=== PATIENT | male | born 1995 | race Caucasian/White ===

== ENCOUNTER 2018-05-09 11:50 | Emergency (ER) | payer SELFPAY ==
--- NOTE | 2018-05-09 14:31 | Emergency Department Report ---
ED General Adult HPI - General Chief complaint: Upper Respiratory Infection Stated complaint: COUGHING Time Seen by Provider: 05/09/18 13:49 Source: patient Mode of arrival: Ambulatory Limitations: No Limitations - History of Present Illness Initial comments: Patient presents to emergency department with a chief complaint of a cough 1 week that is productive in nature. Patient also complains of body aches -: Sudden Radiation: non-radiation Improves with: none Worsens with: none Associated Symptoms: denies other symptoms Treatments Prior to Arrival: none - Related Data Previous Rx's Medication Instructions Recorded Last Taken Type Ondansetron [Zofran Odt] 4 mg PO Q6H #10 tab.rapdis 12/21/13 Unknown Rx Acetaminophen/Codeine [Tylenol #3] 1 tab PO Q6H PRN #20 tab 08/28/15 Unknown Rx Cyclobenzaprine [Flexeril] 10 mg PO TID PRN #30 tablet 08/28/15 Unknown Rx Ibuprofen [Motrin] 600 mg PO Q8H PRN #40 tablet 08/28/15 Unknown Rx Albuterol Sulfate [Albuterol 0.63% 0.63 mg IH Q4HR PRN #30 ml 05/09/18 Unknown Rx NEBS] Azithromycin [Zithromax Z-RENETTA] 250 mg PO DAILY #6 tablet 05/09/18 Unknown Rx Benzonatate [Tessalon Perles] 100 mg PO Q8HR PRN #20 capsule 05/09/18 Unknown Rx Ibuprofen [Motrin] 800 mg PO Q8HR PRN #30 tablet 05/09/18 Unknown Rx Allergies Allergy/AdvReac Type Severity Reaction Status Date / Time No Known Allergies Allergy Verified 12/20/13 21:03 ED Review of Systems ROS: Stated complaint: COUGHING Other details as noted in HPI Comment: All other systems reviewed and negative Constitutional: denies: chills, fever Eyes: denies: eye pain, eye discharge, vision change ENT: denies: ear pain, throat pain Respiratory: cough. denies: shortness of breath, wheezing Cardiovascular: denies: chest pain, palpitations Endocrine: no symptoms reported Gastrointestinal: denies: abdominal pain, nausea, diarrhea Genitourinary: denies: urgency, dysuria Musculoskeletal: denies: back pain, joint swelling, arthralgia Skin: denies: rash, lesions Neurological: denies: headache, weakness, paresthesias Psychiatric: denies: anxiety, depression Hematological/Lymphatic: denies: easy bleeding, easy bruising ED Past Medical Hx - Past Medical History Previous Medical History?: No Hx Hypertension: No Hx CVA: No Hx Heart Attack/AMI: No Hx Congestive Heart Failure: No Hx Diabetes: No Hx Deep Vein Thrombosis: No Hx Pulmonary Embolism: No Hx GERD: No Hx Liver Disease: No Hx Renal Disease: No Hx of Cancer: No Hx Sickle Cell Disease: No Hx Arthritis: No Hx Headaches / Migraines: No Hx Seizures: No Hx Kidney Stones: No Hx Psychiatric Treatment: No Hx Asthma: No Hx COPD: No Hx Tuberculosis: No Hx Dementia: No Hx HIV: No - Surgical History Past Surgical History?: No Hx Coronary Stent: No Hx Open Heart Surgery: No Hx Pacemaker: No Hx Internal Defibrillator: No Hx Cholecystectomy: No Hx Appendectomy: No Hx Breast Surgery: No - Social History Smoking Status: Never Smoker Substance Use Type: None - Medications Home Medications: Home Medications Medication Instructions Recorded Confirmed Last Taken Type Ondansetron [Zofran Odt] 4 mg PO Q6H #10 tab.rapdis 12/21/13 Unknown Rx Acetaminophen/Codeine [Tylenol #3] 1 tab PO Q6H PRN #20 tab 08/28/15 Unknown Rx Cyclobenzaprine [Flexeril] 10 mg PO TID PRN #30 tablet 08/28/15 Unknown Rx Ibuprofen [Motrin] 600 mg PO Q8H PRN #40 tablet 08/28/15 Unknown Rx Albuterol Sulfate [Albuterol 0.63% 0.63 mg IH Q4HR PRN #30 ml 05/09/18 Unknown Rx NEBS] Azithromycin [Zithromax Z-RENETTA] 250 mg PO DAILY #6 tablet 05/09/18 Unknown Rx Benzonatate [Tessalon Perles] 100 mg PO Q8HR PRN #20 capsule 05/09/18 Unknown Rx Ibuprofen [Motrin] 800 mg PO Q8HR PRN #30 tablet 05/09/18 Unknown Rx ED Physical Exam - General Limitations: No Limitations General appearance: alert, in no apparent distress - Head Head exam: Present: atraumatic, normocephalic - Eye Eye exam: Present: normal appearance, PERRL, EOMI - ENT ENT exam: Present: mucous membranes moist - Neck Neck exam: Present: normal inspection - Respiratory Respiratory exam: Present: normal lung sounds bilaterally, wheezes. Absent: respiratory distress - Cardiovascular Cardiovascular Exam: Present: regular rate, normal rhythm. Absent: systolic murmur, diastolic murmur, rubs, gallop - GI/Abdominal GI/Abdominal exam: Present: soft, normal bowel sounds. Absent: distended, tenderness - Rectal Rectal exam: Present: deferred - Extremities Exam Extremities exam: Present: normal inspection - Back Exam Back exam: Present: normal inspection - Neurological Exam Neurological exam: Present: alert, oriented X3, CN II-XII intact. Absent: motor sensory deficit - Psychiatric Psychiatric exam: Present: normal affect, normal mood - Skin Skin exam: Present: warm, dry, intact, normal color. Absent: rash ED Medical Decision Making - Medical Decision Making Discussed plan of care with the patient Critical care attestation.: If time is entered above; I have spent that time in minutes in the direct care of this critically ill patient, excluding procedure time. ED Disposition Clinical Impression: Bronchitis Disposition: TO HOME OR SELFCARE Is pt being admited?: No Does the pt Need Aspirin: No Condition: Stable Instructions: Acute Bronchitis (ED) Additional Instructions: return if worse Prescriptions: Albuterol Sulfate [Albuterol 0.63% NEBS] 0.63 mg IH Q4HR PRN #30 ml PRN Reason: Wheezing Azithromycin [Zithromax Z-RENETTA] 250 mg PO DAILY #6 tablet Benzonatate [Tessalon Perles] 100 mg PO Q8HR PRN #20 capsule PRN Reason: Cough Ibuprofen [Motrin] 800 mg PO Q8HR PRN #30 tablet PRN Reason: Pain Referrals: ELY ROBERTS MD [Primary Care Provider] - 3-5 Days [facility] [Provider Group] - 3-5 Days [facility] [Provider Group] - 3-5 Days Time of Disposition: 14:30
== END 2018-05-09 14:40 | disposition home or self-care (01) ==
LOC: ED 11:50
DX: J40 Bronchitis, not specified as acute or chronic (principal)
CPT/HCPCS: 99281

== ENCOUNTER 2018-06-26 08:53 | Emergency (ER) | payer OTHER ==
[2018-06-26 08:58] VITALS: BP 138/89
--- NOTE | 2018-06-26 10:05 | Emergency Department Report ---
ED ENT HPI - General Chief complaint: Earache Stated complaint: LFT EAR PAIN Source: patient Mode of arrival: Ambulatory Limitations: No Limitations - History of Present Illness Initial comments: This is a 22-year-old male presents with pain in the left ear since yesterday. Patient states he was playing with his brother when his brother hit the left side of his face causing a ringing sound to left ear. Patient also complains of a burning sensation in the left ear. He apply peroxide with no improvement of symptoms. Patient states after peroxide and small increased burning and drainage of wax. He also complains of muffled hearing. He denies discharge from ear. MD complaint: ear pain (left ear) Onset/Timin -: days(s) Location: L ear Severity: moderate Severity scale (0 -10): 4 Quality: burning Consistency: constant Improves with: none Worsens with: none Associated Symptoms: tinnitus. denies: fever, cough, gum swelling, toothache, pain with swallowing, sore throat, rhinorrhea - Related Data Previous Rx's Medication Instructions Recorded Last Taken Type Ondansetron [Zofran Odt] 4 mg PO Q6H #10 tab.rapdis 12/21/13 Unknown Rx Acetaminophen/Codeine [Tylenol #3] 1 tab PO Q6H PRN #20 tab 08/28/15 Unknown Rx Cyclobenzaprine [Flexeril] 10 mg PO TID PRN #30 tablet 08/28/15 Unknown Rx Ibuprofen [Motrin] 600 mg PO Q8H PRN #40 tablet 08/28/15 Unknown Rx Albuterol Sulfate [Albuterol 0.63% 0.63 mg IH Q4HR PRN #30 ml 05/09/18 Unknown Rx NEBS] Azithromycin [Zithromax Z-RENETTA] 250 mg PO DAILY #6 tablet 05/09/18 Unknown Rx Benzonatate [Tessalon Perles] 100 mg PO Q8HR PRN #20 capsule 05/09/18 Unknown Rx Ibuprofen [Motrin] 800 mg PO Q8HR PRN #30 tablet 05/09/18 Unknown Rx Ibuprofen [Motrin 600 MG tab] 600 mg PO Q8H PRN #20 tablet 06/26/18 Unknown Rx Neomycin/Polymyxin B/Hydrocort 10 ml OT TID #1 drops.susp 06/26/18 Unknown Rx [Balhanmh-Eqhjvwkkm-Fq Ear Susp] Allergies Allergy/AdvReac Type Severity Reaction Status Date / Time No Known Allergies Allergy Verified 12/20/13 21:03 ED Dental HPI - General Chief complaint: Earache Stated complaint: LFT EAR PAIN Source: patient Mode of arrival: Ambulatory Limitations: No Limitations - Related Data Previous Rx's Medication Instructions Recorded Last Taken Type Ondansetron [Zofran Odt] 4 mg PO Q6H #10 tab.rapdis 12/21/13 Unknown Rx Acetaminophen/Codeine [Tylenol #3] 1 tab PO Q6H PRN #20 tab 08/28/15 Unknown Rx Cyclobenzaprine [Flexeril] 10 mg PO TID PRN #30 tablet 08/28/15 Unknown Rx Ibuprofen [Motrin] 600 mg PO Q8H PRN #40 tablet 08/28/15 Unknown Rx Albuterol Sulfate [Albuterol 0.63% 0.63 mg IH Q4HR PRN #30 ml 05/09/18 Unknown Rx NEBS] Azithromycin [Zithromax Z-RENETTA] 250 mg PO DAILY #6 tablet 05/09/18 Unknown Rx Benzonatate [Tessalon Perles] 100 mg PO Q8HR PRN #20 capsule 05/09/18 Unknown Rx Ibuprofen [Motrin] 800 mg PO Q8HR PRN #30 tablet 05/09/18 Unknown Rx Ibuprofen [Motrin 600 MG tab] 600 mg PO Q8H PRN #20 tablet 06/26/18 Unknown Rx Neomycin/Polymyxin B/Hydrocort 10 ml OT TID #1 drops.susp 06/26/18 Unknown Rx [Yptpyizx-Fxotoqlca-Hx Ear Susp] Allergies Allergy/AdvReac Type Severity Reaction Status Date / Time No Known Allergies Allergy Verified 12/20/13 21:03 ED Review of Systems ROS: Stated complaint: LFT EAR PAIN Other details as noted in HPI Constitutional: denies: chills, fever ENT: ear pain (left ear). denies: throat pain Respiratory: denies: cough, shortness of breath, wheezing Cardiovascular: denies: chest pain, palpitations Gastrointestinal: denies: abdominal pain, nausea, diarrhea Skin: denies: rash, lesions Neurological: denies: headache, weakness, paresthesias Psychiatric: denies: anxiety, depression ED Past Medical Hx - Past Medical History Hx Hypertension: No Hx CVA: No Hx Heart Attack/AMI: No Hx Congestive Heart Failure: No Hx Diabetes: No Hx Deep Vein Thrombosis: No Hx Pulmonary Embolism: No Hx GERD: No Hx Liver Disease: No Hx Renal Disease: No Hx Sickle Cell Disease: No Hx Arthritis: No Hx Headaches / Migraines: No Hx Seizures: No Hx Kidney Stones: No Hx Psychiatric Treatment: No Hx Asthma: No Hx COPD: No Hx Tuberculosis: No Hx Dementia: No Hx HIV: No - Surgical History Hx Coronary Stent: No Hx Open Heart Surgery: No Hx Pacemaker: No Hx Internal Defibrillator: No Hx Cholecystectomy: No Hx Appendectomy: No Hx Breast Surgery: No - Social History Smoking Status: Never Smoker Substance Use Type: None - Medications Home Medications: Home Medications Medication Instructions Recorded Confirmed Last Taken Type Ondansetron [Zofran Odt] 4 mg PO Q6H #10 tab.rapdis 12/21/13 Unknown Rx Acetaminophen/Codeine [Tylenol #3] 1 tab PO Q6H PRN #20 tab 08/28/15 Unknown Rx Cyclobenzaprine [Flexeril] 10 mg PO TID PRN #30 tablet 08/28/15 Unknown Rx Ibuprofen [Motrin] 600 mg PO Q8H PRN #40 tablet 08/28/15 Unknown Rx Albuterol Sulfate [Albuterol 0.63% 0.63 mg IH Q4HR PRN #30 ml 05/09/18 Unknown Rx NEBS] Azithromycin [Zithromax Z-RENETTA] 250 mg PO DAILY #6 tablet 05/09/18 Unknown Rx Benzonatate [Tessalon Perles] 100 mg PO Q8HR PRN #20 capsule 05/09/18 Unknown Rx Ibuprofen [Motrin] 800 mg PO Q8HR PRN #30 tablet 05/09/18 Unknown Rx Ibuprofen [Motrin 600 MG tab] 600 mg PO Q8H PRN #20 tablet 06/26/18 Unknown Rx Neomycin/Polymyxin B/Hydrocort 10 ml OT TID #1 drops.susp 06/26/18 Unknown Rx [Ujmbfhvg-Qcdelhxec-Ok Ear Susp] ED Physical Exam - General Limitations: No Limitations General appearance: alert, in no apparent distress - Eye Eye exam: Present: normal appearance - ENT ENT exam: Present: normal orophraynx, TM's normal bilaterally. Absent: normal external ear exam (erythematous left external ear canal, cerumen present, rousseau light reflex) - Neck Neck exam: Present: normal inspection - Respiratory Respiratory exam: Present: normal lung sounds bilaterally. Absent: respiratory distress - Cardiovascular Cardiovascular Exam: Present: regular rate, normal rhythm. Absent: systolic murmur, diastolic murmur, rubs, gallop - GI/Abdominal GI/Abdominal exam: Present: soft, normal bowel sounds - Neurological Exam Neurological exam: Present: alert, oriented X3 - Psychiatric Psychiatric exam: Present: normal affect, normal mood - Skin Skin exam: Present: warm, dry, intact, normal color. Absent: rash ED Course Vital Signs 06/26/18 08:56 Temperature 98.5 F Pulse Rate 97 H Respiratory 16 Rate Blood Pressure 138/89 O2 Sat by Pulse 98 Oximetry ED Medical Decision Making - Medical Decision Making This is a 22 y.o. male accompanied that presents with left ear pain for 1 day. Patient is stable and was examined by me. Vitals normal. Physical assessment susceptible of otitis externa of left ear. Start and ibuporfen. Discussed plan w ith patient and he agreed with plan. Discharged home in stable condition. Follow up with PCP in 24-72 hours. Critical care attestation.: If time is entered above; I have spent that time in minutes in the direct care of this critically ill patient, excluding procedure time. ED Disposition Clinical Impression: Left ear pain Otitis externa Qualifiers: Otitis externa type: diffuse Chronicity: acute Laterality: left Qualified Code(s): H60.312 - Diffuse otitis externa, left ear Disposition: - TO HOME OR SELFCARE Is pt being admited?: No Does the pt Need Aspirin: No Condition: Stable Instructions: Otitis Externa (ED) Additional Instructions: Give Tylenol or ibuprofen for pain every 6-8 hours. Take antibiotics as prescribed to avoid recurrence of the ear infection. Avoid high altitudes, may worsen the pain during ear infection. If symptoms do not improve within 2 to 3 days, then follow up with a primary care provider. Prescriptions: Ibuprofen [Motrin 600 MG tab] 600 mg PO Q8H PRN #20 tablet PRN Reason: Pain Neomycin/Polymyxin B/Hydrocort [Colrgiai-Iftylftyn-Uk Ear Susp] 10 ml OT TID #1 drops.susp Referrals: VEDA ROLAND MD [Primary Care Provider] - 3-5 Days [facility] [Outside] - 3-[address] [facility] [Outside] - 3-5 Days Forms: Work/School Release Form(ED) Time of Disposition: 10:10
== END 2018-06-26 10:23 | disposition home or self-care (01) ==
LOC: ED 08:53
DX: H60.92 Unspecified otitis externa, left ear (principal)
CPT/HCPCS: 99282

== ENCOUNTER 2019-03-02 20:25 | Emergency (ER) | payer SELFPAY ==
--- NOTE | 2019-03-02 21:16 | Event Note ---
ED Screening Note ED Screening Note: This initial assessment/diagnostic orders/clinical plan/treatment(s) is/are subject to change based on patients health status, clinical progression and re- assessment by fellow clinical providers in the ED. Further treatment and workup at subsequent clinical providers discretion. Patient/guardian urged not to elope from the ED as their condition may be serious if not clinically assessed and managed. Initial orders include: 23 yo male states that he has cough, congestion, chest pain 2 weeks. He states that it has become worse.
--- NOTE | 2019-03-02 21:50 | XRay Report ---
CHEST 2 VIEWS INDICATION / CLINICAL INFORMATION: chest pain. COMPARISON: None available. FINDINGS: SUPPORT DEVICES: None. HEART / MEDIASTINUM: No significant abnormality. LUNGS / PLEURA: No significant pulmonary or pleural abnormality. No pneumothorax. ADDITIONAL FINDINGS: No significant additional findings. IMPRESSION: 1. No acute findings. Signer Name: Alberto Barbosa MD Signed: 03/02/2019 9:45 PM Workstation Name: [id number]
[2019-03-02 23:33] VITALS: BP 126/81
[2019-03-02] MEDS ORDERED: IBUPROFEN 600 MG TAB PO ONE (23:57)
--- NOTE | 2019-03-03 00:02 | Emergency Department Report ---
ED General Adult HPI - General Chief complaint: Upper Respiratory Infection Stated complaint: FEVER COUGHING CHEST HURTING FROM COUGH Time Seen by Provider: 03/02/19 22:38 Source: patient, RN notes reviewed, old records reviewed Mode of arrival: Ambulatory Limitations: No Limitations - History of Present Illness Initial comments: This is a pleasant 23-year-old gentleman who is not known to this provider previously. He states he does not smoke, does not consume marijuana, and does not use artificial cigarettes or smoking devices. He presents to the ER with a complaint of congestion, mucus production, chest wall tightness, posttussive nausea occasionally, and muscular back pain. Symptoms present for a few weeks. They're mostly resolved at this time. He denies DVT and pulmonary embolus risk factors. -: days(s) Location: chest, back Severity scale (0 -10): 0 Quality: aching Consistency: intermittent Improves with: rest Worsens with: other (coughing) - Related Data Previous Rx's Medication Instructions Recorded Last Taken Type Ondansetron [Zofran Odt] 4 mg PO Q6H #10 tab.rapdis 12/21/13 Unknown Rx Ibuprofen [Motrin] 600 mg PO Q8H PRN #40 tablet 08/28/15 Unknown Rx Albuterol Sulfate [Albuterol 0.63% 0.63 mg IH Q4HR PRN #30 ml 05/09/18 Unknown Rx NEBS] Benzonatate [Tessalon Perles] 100 mg PO Q8HR PRN #20 capsule 05/09/18 Unknown Rx Ibuprofen [Motrin] 800 mg PO Q8HR PRN #30 tablet 05/09/18 Unknown Rx Ibuprofen [Motrin 600 MG tab] 600 mg PO Q8H PRN #20 tablet 06/26/18 Unknown Rx Neomycin/Polymyxin B/Hydrocort 10 ml OT TID #1 drops.susp 06/26/18 Unknown Rx [Xonmdecd-Qqvenapvc-Fl Ear Susp] Albuterol Sulfate [Proair 90 mcg IH Q4HR PRN #2 aer.pow.ba 03/03/19 Unknown Rx Respiclick] Benzonatate [Tessalon Perles] 100 mg PO Q8HR PRN #30 capsule 03/03/19 Unknown Rx Fluticasone [Flonase] 1 spray NS QDAY #1 bottle 03/03/19 Unknown Rx Ibuprofen [Motrin] 600 mg PO Q8H PRN #30 tablet 03/03/19 Unknown Rx Allergies Allergy/AdvReac Type Severity Reaction Status Date / Time No Known Allergies Allergy Verified 12/20/13 21:03 ED Review of Systems ROS: Stated complaint: FEVER COUGHING CHEST HURTING FROM COUGH Other details as noted in HPI Constitutional: denies: fever Eyes: denies: eye discharge ENT: congestion Respiratory: cough Cardiovascular: denies: syncope Gastrointestinal: other. denies: abdominal pain Musculoskeletal: arthralgia, myalgia ED Past Medical Hx - Past Medical History Previous Medical History?: No Hx Hypertension: No Hx CVA: No Hx Heart Attack/AMI: No Hx Congestive Heart Failure: No Hx Diabetes: No Hx Deep Vein Thrombosis: No Hx Pulmonary Embolism: No Hx GERD: No Hx Liver Disease: No Hx Renal Disease: No Hx Sickle Cell Disease: No Hx Arthritis: No Hx Headaches / Migraines: No Hx Seizures: No Hx Kidney Stones: No Hx Psychiatric Treatment: No Hx Asthma: No Hx COPD: No Hx Tuberculosis: No Hx Dementia: No Hx HIV: No - Surgical History Past Surgical History?: No Hx Coronary Stent: No Hx Open Heart Surgery: No Hx Pacemaker: No Hx Internal Defibrillator: No Hx Cholecystectomy: No Hx Appendectomy: No Hx Breast Surgery: No - Social History Smoking Status: Never Smoker - Medications Home Medications: Home Medications Medication Instructions Recorded Confirmed Last Taken Type Ondansetron [Zofran Odt] 4 mg PO Q6H #10 tab.rapdis 12/21/13 Unknown Rx Ibuprofen [Motrin] 600 mg PO Q8H PRN #40 tablet 08/28/15 Unknown Rx Albuterol Sulfate [Albuterol 0.63% 0.63 mg IH Q4HR PRN #30 ml 05/09/18 Unknown Rx NEBS] Benzonatate [Tessalon Perles] 100 mg PO Q8HR PRN #20 capsule 05/09/18 Unknown Rx Ibuprofen [Motrin] 800 mg PO Q8HR PRN #30 tablet 05/09/18 Unknown Rx Ibuprofen [Motrin 600 MG tab] 600 mg PO Q8H PRN #20 tablet 06/26/18 Unknown Rx Neomycin/Polymyxin B/Hydrocort 10 ml OT TID #1 drops.susp 06/26/18 Unknown Rx [Jnrejcji-Ymnviblwi-Aq Ear Susp] Albuterol Sulfate [Proair 90 mcg IH Q4HR PRN #2 aer.pow.ba 03/03/19 Unknown Rx Respiclick] Benzonatate [Tessalon Perles] 100 mg PO Q8HR PRN #30 capsule 03/03/19 Unknown Rx Fluticasone [Flonase] 1 spray NS QDAY #1 bottle 03/03/19 Unknown Rx Ibuprofen [Motrin] 600 mg PO Q8H PRN #30 tablet 03/03/19 Unknown Rx ED Physical Exam - General Limitations: No Limitations General appearance: alert, in no apparent distress - Head Head exam: Present: atraumatic, normocephalic - Eye Eye exam: Present: normal appearance, EOMI. Absent: nystagmus - ENT ENT exam: Present: normal exam, normal orophraynx, mucous membranes moist, normal external ear exam - Neck Neck exam: Present: normal inspection, full ROM. Absent: tenderness, meningismus - Respiratory Respiratory exam: Present: normal lung sounds bilaterally. Absent: respiratory distress, wheezes, rales, rhonchi, stridor, chest wall tenderness, accessory muscle use, decreased breath sounds, prolonged expiratory - Cardiovascular Cardiovascular Exam: Present: regular rate, normal rhythm, normal heart sounds. Absent: bradycardia, tachycardia, irregular rhythm, systolic murmur, diastolic murmur, rubs, gallop - GI/Abdominal GI/Abdominal exam: Present: soft. Absent: distended, tenderness, guarding, rebound, rigid, pulsatile mass - Rectal Rectal exam: Present: deferred - Extremities Exam Extremities exam: Present: normal inspection, full ROM, other (2+ pulses noted in the bilateral upper, lower extremities. There is no long bone tenderness. Musculoskeletal compartments are soft. The pelvis is stable.). Absent: pedal edema, calf tenderness - Back Exam Back exam: Present: normal inspection, full ROM. Absent: tenderness, CVA tenderness (R), CVA tenderness (L), paraspinal tenderness, vertebral tenderness - Neurological Exam Neurological exam: Present: alert, oriented X3, normal gait, other (there is no facial droop. The tongue is midline. Extraocular movements are intact bilaterally. Patient speaking in full complete sentences. Shoulder shrug is intact bilaterally. Hearing is grossly intact bilaterally. Visual acuity intact to finger counting and color perception at a close distance. 5/5 strength 4 extremities. Sensation intact to light touch in 4 extremities.). Absent: motor sensory deficit - Psychiatric Psychiatric exam: Present: normal affect, normal mood - Skin Skin exam: Present: warm, dry, intact, normal color. Absent: rash ED Course Vital Signs 03/02/19 03/02/19 20:31 23:32 Temperature 98.4 F 98.6 F Pulse Rate 124 H 114 H Respiratory 20 18 Rate Blood Pressure 142/88 Blood Pressure 126/81 [Right] O2 Sat by Pulse 98 98 Oximetry ED Medical Decision Making - Lab Data Vital Signs 03/02/19 03/02/19 20:31 23:32 Temperature 98.4 F 98.6 F Pulse Rate 124 H 114 H Respiratory 20 18 Rate Blood Pressure 142/88 Blood Pressure 126/81 [Right] O2 Sat by Pulse 98 98 Oximetry - EKG Data -: EKG Interpreted by Me EKG shows normal: sinus rhythm Rate: normal - EKG Data 03/02/19 23:59 EKG shows a sinus rhythm, 95 beats for minute, borderline leftward axis, versus an artifact versus lead placement, high left ventricular voltage, atrial enlargement, the EKG is not consistent with ST elevation myocardial infarction. - Radiology Data Radiology results: pending, report reviewed, image reviewed X-ray the chest is negative for acute disease - Medical Decision Making Differential diagnosis, including not limited to: Bronchitis, viral syndrome, seasonal allergies Assessment and plan: 23-year-old gentleman with probable bronchitis, tachycardia resolved and my exam, reports no DVT or pulmonary embolism risk factors and is low risk by well's criteria. On initial assessment is afebrile with reassuring vital signs resting comfortably in stretcher, and in no acute distress. Physical exam is unremarkable. Does not have an emergent medical condition at this time. We discussed expectant management for bronchitis. Critical care attestation.: If time is entered above; I have spent that time in minutes in the direct care of this critically ill patient, excluding procedure time. ED Disposition Clinical Impression: Bronchitis Disposition: [id number] TO HOME OR SELFCARE Is pt being admited?: No Does the pt Need Aspirin: No Condition: Stable Instructions: Acute Bronchitis (ED) Additional Instructions: Patient most likely has bronchitis. Bronchitis not typically dangerous or life- threatening. There is typically no cure for bronchitis. Take the medications as needed and directed. Advance diet as tolerated. Drink plenty of fluids. Patient may use vaporizer and/or humidifier at home. Recommend follow-up with the primary care doctor within the next month. Return to emergency room right away with new, worsened or different symptoms, or symptoms not present on initial emergency room evaluation. Prescriptions: Fluticasone [Flonase] 1 spray NS QDAY #1 bottle Ibuprofen [Motrin] 600 mg PO Q8H PRN #30 tablet PRN Reason: Pain Albuterol Sulfate [Proair Respiclick] 90 mcg IH Q4HR PRN #2 aer.pow.ba PRN Reason: Wheezing Benzonatate [Tessalon Perles] 100 mg PO Q8HR PRN #30 capsule PRN Reason: Cough Referrals: [facility] [Provider Group] - 3-5 Days [facility] [Provider Group] - 3-5 Days
== END 2019-03-03 00:20 | disposition home or self-care (01) ==
LOC: ED 20:25
DX: J40 Bronchitis, not specified as acute or chronic (principal); Z79.899 Other long term (current) drug therapy
CPT/HCPCS: 71046; 93005; 93010